=== PATIENT | female | born 1975 | race Two or more races ===

== ENCOUNTER → 2020-12-21 | Outpatient (CLI) | payer OTHER | END | disposition home or self-care (01) | LOC: PPH VACUNA 08:00 | PROVIDERS: ATTEND Emergency Medicine Pediatric Emergency Medicine | DX: Z23 Encounter for immunization (principal) ==

== ENCOUNTER 2021-11-24 16:33 | Emergency (ER) | payer OTHER ==
[~2021-11-24] VITALS: Ht 152.4 cm; Wt 61.2 kg
[2021-11-24] MEDS ORDERED: SYNTHROID75 MCG PO (16:49)
== END 2021-11-24 18:41 | disposition home or self-care (01) ==
LOC: ER 16:33
DX: T78.40XA Allergy, unspecified, initial encounter (principal); X58.XXXA Exposure to other specified factors, initial encounter